=== PATIENT | male | born 1965 | race African-American/Black ===

== ENCOUNTER 2017-08-13 17:55 | Inpatient (IN) | payer MEDICAID ==
[~2017-08-13] VITALS: Ht 193 cm; Wt 118.6 kg
[2017-08-13 18:57] LABS: BASOPHILS 0.6 % (0-2); EOSINOPHILS 6.2 % (0-7); HEMATOCRIT 47.9 % (42.0-54.0); HEMOGLOBIN 17.2 g/dL (13.5-17.5); IMMATURE GRANULOCYTES 0.2 % (0-5); LYMPHOCYTES 29.8 % (15-50); MCH 30.8 pg (26.0-34.0); MCHC 35.9 g/dL (31.0-37.0); MCV 85.8 fL (80.0-100.0); MEAN PLATELET VOLUME 12.6 fL (7.4-10.4); MONOCYTES 5.3 % (2-11); NEUTROPHILS 57.9 % (40-80); PLATELET COUNT 200 10x3/uL (130-400); RBC 5.58 10x6/uL (4.20-6.10); RDW 12.7 % (11.5-14.5); WBC 9.8 10x3/uL (4.8-10.8)
[2017-08-13 19:07] LABS: INR 1.1 (0.85-1.17); PROTIME 13.8 SECONDS (11.6-15.0)
[2017-08-13 19:35] LABS: ALBUMIN 4.6 g/dL (3.4-5.0); ANION GAP 16.9 mmol/L (8-16); BILIRUBIN - TOTAL 0.45 mg/dL (0.2-1.3); CALCIUM 10.9 mg/dL (8.5-10.1); CARBON DIOXIDE 24.5 mmol/L (21.0-32.0); CREATININE - SERUM 1.6 mg/dL (0.6-1.3); POTASSIUM - SERUM 3.4 mmol/L (3.5-5.1); PROTEIN - SERUM 9.1 g/dL (6.4-8.2)
[2017-08-14 01:43] VITALS: BP 157/105; BMI 30.2
[2017-08-14 04:00] VITALS: BP 164/114
[2017-08-14] MEDS ORDERED: LISINOPRIL10 MG PO (05:38)
[2017-08-14] MEDS ORDERED: PEPCID40 MG PO (05:39)
[2017-08-14] MEDS ORDERED: LOPRESSOR25 MG PO (05:39)
[2017-08-14] MEDS ORDERED: LANTUS INSULIN10 ML SC (05:40)
[2017-08-14] MEDS ORDERED: HUMALOG 30100 UNITS/ SC (05:41)
[2017-08-14 08:08] VITALS: BP 142/104
[2017-08-14 11:55] VITALS: Ht 193 cm; Wt 118.6 kg
[2017-08-14 13:08] VITALS: BP 127/100
[2017-08-14 16:01] LABS: BASOPHILS 0.7 % (0-2); EOSINOPHILS 5.6 % (0-7); HEMATOCRIT 42.2 % (42.0-54.0); HEMOGLOBIN 14.7 g/dL (13.5-17.5); IMMATURE GRANULOCYTES 0.2 % (0-5); LYMPHOCYTES 28.1 % (15-50); MCH 30.1 pg (26.0-34.0); MCHC 34.8 g/dL (31.0-37.0); MCV 86.3 fL (80.0-100.0); MEAN PLATELET VOLUME 12.7 fL (7.4-10.4); MONOCYTES 5.9 % (2-11); NEUTROPHILS 59.5 % (40-80); RBC 4.89 10x6/uL (4.20-6.10); RDW 12.7 % (11.5-14.5)
[2017-08-14 16:02] VITALS: BP 150/106
[2017-08-14 16:14] LABS: PLATELET COUNT 124 10x3/uL (130-400); WBC 5.8 10x3/uL (4.8-10.8)
[2017-08-14 16:27] LABS: BILIRUBIN - TOTAL 0.59 mg/dL (0.2-1.3); CREATININE - SERUM 1.3 mg/dL (0.6-1.3)
[2017-08-14 16:30] LABS: ALBUMIN 3.2 g/dL (3.4-5.0); ANION GAP 8.4 mmol/L (8-16); POTASSIUM - SERUM 4.4 mmol/L (3.5-5.1); PROTEIN - SERUM 6.7 g/dL (6.4-8.2)
[2017-08-14 20:00] VITALS: BP 145/93
[2017-08-15 04:00] VITALS: BP 168/97
[2017-08-15 06:31] LABS: BASOPHILS 0.7 % (0-2); EOSINOPHILS 8.1 % (0-7); HEMATOCRIT 41.6 % (42.0-54.0); HEMOGLOBIN 14.6 g/dL (13.5-17.5); IMMATURE GRANULOCYTES 0.2 % (0-5); LYMPHOCYTES 31.3 % (15-50); MCH 30.4 pg (26.0-34.0); MCHC 35.1 g/dL (31.0-37.0); MCV 86.7 fL (80.0-100.0); MEAN PLATELET VOLUME 12.9 fL (7.4-10.4); MONOCYTES 6.7 % (2-11); PLATELET COUNT 135 10x3/uL (130-400); RDW 12.6 % (11.5-14.5)
[2017-08-15 06:40] LABS: ANION GAP 13.7 mmol/L (8-16); BILIRUBIN - TOTAL 0.74 mg/dL (0.2-1.3); CALCIUM 8.9 mg/dL (8.5-10.1); CARBON DIOXIDE 25.2 mmol/L (21.0-32.0); CREATININE - SERUM 1.1 mg/dL (0.6-1.3); POTASSIUM - SERUM 3.9 mmol/L (3.5-5.1); PROTEIN - SERUM 6.4 g/dL (6.4-8.2)
[2017-08-15 06:43] LABS: WBC 4.3 10x3/uL (4.8-10.8)
[2017-08-15 08:14] VITALS: BP 161/101
[2017-08-15 13:19] VITALS: BP 150/109
[2017-08-15 15:43] VITALS: BP 167/105
[2017-08-15 20:00] VITALS: BP 151/79
[2017-08-16] VITALS (7 sets, daily range): BP systolic 143–167; BP diastolic 88–106
[2017-08-16 05:33] LABS: BASOPHILS 0.5 % (0-2); EOSINOPHILS 7.6 % (0-7); HEMATOCRIT 42.4 % (42.0-54.0); HEMOGLOBIN 14.6 g/dL (13.5-17.5); IMMATURE GRANULOCYTES 0.2 % (0-5); LYMPHOCYTES 40.8 % (15-50); MCH 30.2 pg (26.0-34.0); MCHC 34.4 g/dL (31.0-37.0); MCV 87.6 fL (80.0-100.0); MEAN PLATELET VOLUME 12.9 fL (7.4-10.4); MONOCYTES 8.8 % (2-11); NEUTROPHILS 42.1 % (40-80); PLATELET COUNT 142 10x3/uL (130-400); RBC 4.84 10x6/uL (4.20-6.10); RDW 12.6 % (11.5-14.5); WBC 4.1 10x3/uL (4.8-10.8)
[2017-08-16 05:44] LABS: ALBUMIN 3.2 g/dL (3.4-5.0); BILIRUBIN - TOTAL 0.87 mg/dL (0.2-1.3); CALCIUM 9.5 mg/dL (8.5-10.1); CARBON DIOXIDE 28.5 mmol/L (21.0-32.0); CREATININE - SERUM 1.1 mg/dL (0.6-1.3); POTASSIUM - SERUM 3.5 mmol/L (3.5-5.1); PROTEIN - SERUM 6.8 g/dL (6.4-8.2)
[2017-08-17 03:30] VITALS: BP 146/96
[2017-08-17 05:18] LABS: BASOPHILS 0.5 % (0-2); EOSINOPHILS 7.9 % (0-7); HEMATOCRIT 38.9 % (42.0-54.0); HEMOGLOBIN 13.4 g/dL (13.5-17.5); IMMATURE GRANULOCYTES 0.2 % (0-5); LYMPHOCYTES 45.2 % (15-50); MCH 30.1 pg (26.0-34.0); MCHC 34.4 g/dL (31.0-37.0); MCV 87.4 fL (80.0-100.0); MEAN PLATELET VOLUME 12.6 fL (7.4-10.4); MONOCYTES 7.9 % (2-11); NEUTROPHILS 38.3 % (40-80); PLATELET COUNT 142 10x3/uL (130-400); RBC 4.45 10x6/uL (4.20-6.10); RDW 12.5 % (11.5-14.5); WBC 4.1 10x3/uL (4.8-10.8)
[2017-08-17 05:45] LABS: ALBUMIN 2.8 g/dL (3.4-5.0); ANION GAP 9.6 mmol/L (8-16); BILIRUBIN - TOTAL 0.4 mg/dL (0.2-1.3); CALCIUM 8.8 mg/dL (8.5-10.1); CARBON DIOXIDE 29.7 mmol/L (21.0-32.0); CREATININE - SERUM 1.1 mg/dL (0.6-1.3); POTASSIUM - SERUM 4.3 mmol/L (3.5-5.1); PROTEIN - SERUM 6.1 g/dL (6.4-8.2)
[2017-08-17 07:03] VITALS: BP 157/94
[2017-08-17 11:10] VITALS: BP 163/101
[2017-08-17 14:58] VITALS: BP 171/98
[2017-08-17 20:00] VITALS: BP 159/96
[2017-08-18] VITALS: BP 134/75
[2017-08-18 05:00] VITALS: BP 142/77
[2017-08-18 06:10] LABS: BASOPHILS 0.8 % (0-2); EOSINOPHILS 7.5 % (0-7); HEMATOCRIT 39.4 % (42.0-54.0); HEMOGLOBIN 13.7 g/dL (13.5-17.5); IMMATURE GRANULOCYTES 0.3 % (0-5); LYMPHOCYTES 37.5 % (15-50); MCH 30.2 pg (26.0-34.0); MCHC 34.8 g/dL (31.0-37.0); MCV 86.8 fL (80.0-100.0); MEAN PLATELET VOLUME 12.3 fL (7.4-10.4); NEUTROPHILS 43.9 % (40-80); PLATELET COUNT 135 10x3/uL (130-400); RBC 4.54 10x6/uL (4.20-6.10); RDW 12.6 % (11.5-14.5); WBC 3.6 10x3/uL (4.8-10.8)
[2017-08-18 06:32] LABS: ALBUMIN 2.8 g/dL (3.4-5.0); ALKALINE PHOSPHATASE 64 U/L (46-116); ALT (SGPT) 26 U/L (10-68); CALC OSMOLALITY 283 mosm/kg (275-300); CALCIUM 8.4 mg/dL (8.5-10.1); CARBON DIOXIDE 28.7 mmol/L (21.0-32.0); CHLORIDE - SERUM 106 mmol/L (98-107); GLUCOSE 200 mg/dL (74-106); POTASSIUM - SERUM 3.8 mmol/L (3.5-5.1); SODIUM 141 mmol/L (136-145); eGFR NON AFRICAN AMERICAN 83 mL/min (90-120)
[2017-08-18 06:34] LABS: UREA NITROGEN 3 mg/dL (7-18)
[2017-08-18 09:02] VITALS: BP 154/88
[2017-08-18 16:49] VITALS: BP 145/78
[2017-08-18 20:00] VITALS: BP 135/98
[2017-08-19] VITALS: BP 107/69
[2017-08-19 05:54] LABS: BASOPHILS 0.2 % (0-2); EOSINOPHILS 3.1 % (0-7); HEMATOCRIT 39.9 % (42.0-54.0); HEMOGLOBIN 13.6 g/dL (13.5-17.5); IMMATURE GRANULOCYTES 0.2 % (0-5); LYMPHOCYTES 22.8 % (15-50); MCHC 34.1 g/dL (31.0-37.0); MCV 87.9 fL (80.0-100.0); MEAN PLATELET VOLUME 12.5 fL (7.4-10.4); MONOCYTES 8.6 % (2-11); NEUTROPHILS 65.1 % (40-80); PLATELET COUNT 147 10x3/uL (130-400); RBC 4.54 10x6/uL (4.20-6.10); RDW 12.5 % (11.5-14.5)
[2017-08-19 06:00] LABS: WBC 4.8 10x3/uL (4.8-10.8)
[2017-08-19 06:16] LABS: ALBUMIN 2.5 g/dL (3.4-5.0); ANION GAP 7.9 mmol/L (8-16); CALCIUM 8.2 mg/dL (8.5-10.1); CARBON DIOXIDE 30.2 mmol/L (21.0-32.0); MAGNESIUM - SERUM 1.3 mg/dL (1.8-2.4); PHOSPHOROUS 3.4 mg/dL (2.5-4.9); POTASSIUM - SERUM 4.1 mmol/L (3.5-5.1); PROTEIN - SERUM 5.3 g/dL (6.4-8.2)
[2017-08-19 06:28] LABS: CREATININE - SERUM 1.3 mg/dL (0.6-1.3)
[2017-08-19 07:13] VITALS: BP 149/90
[2017-08-19 11:02] VITALS: BP 153/106
[2017-08-19 15:04] VITALS: BP 148/86
[2017-08-19 19:30] VITALS: BP 142/88
[2017-08-19 23:49] VITALS: BP 150/89
[2017-08-20 03:58] VITALS: BP 139/92
[2017-08-20 09:32] VITALS: BP 156/97
[2017-08-20 13:27] VITALS: BP 160/105
[2017-08-20 16:41] VITALS: BP 151/92
[2017-08-20 23:00] VITALS: BP 158/100
[2017-08-21 05:00] VITALS: BP 157/102
[2017-08-21 08:45] VITALS: BP 175/106
[2017-08-21 12:45] VITALS: BP 173/113
[2017-08-21 16:32] VITALS: BP 159/101
[2017-08-22 02:00] VITALS: BP 141/91
[2017-08-22 08:20] VITALS: BP 156/94
[2017-08-22 12:26] VITALS: BP 147/98
[2017-08-22 16:14] VITALS: BP 166/102
[2017-08-22 20:00] VITALS: BP 144/87
[2017-08-23] VITALS: BP 135/87
[2017-08-23 04:00] VITALS: BP 129/49
[2017-08-23 07:59] VITALS: BP 150/99
[2017-08-23 12:23] VITALS: BP 156/94
[2017-08-23 15:52] VITALS: BP 158/90
[2017-08-23] MEDS ORDERED: HYDROCODON-ACE1 EAC7 PO (21:03)
== END 2017-08-23 21:57 | disposition home or self-care (01) | DRG 354 ==
LOC: D.ER 17:55 → D.MS 21:00
PROVIDERS: Emergency Medicine; Nurse Practitioner Family; Surgery
PROC: 0WUF0JZ Supplement Abdominal Wall with Synthetic Substitute, Open Approach (ICD-10-PCS; principal; 2017-08-18 10:00)
DX: K43.0 Incisional hernia with obstruction, without gangrene (principal); N17.9 Acute kidney failure, unspecified; E11.9 Type 2 diabetes mellitus without complications; I10 Essential (primary) hypertension

== ENCOUNTER 2017-09-01 19:20 | Inpatient (IN) | payer MEDICAID ==
[~2017-09-01] VITALS: Ht 193 cm; Wt 116.1 kg
--- NOTE | ~2017-09-01 | DS ---
PATIENT:MALU ZAIDI :63 MEDICAL RECORD: [id number] DISCHARGE SUMMARY ADMISSION DATE: 09/02/17 DISCHARGE DATE: 09/09/17 PRINCIPAL DIAGNOSES: 1. Postoperative subcutaneous seromas times 4. 2. Ileus. PROCEDURE: Incision and drainage of postoperative subcutaneous seromas times 4. HOSPITAL COURSE: The patient was admitted through the Emergency Room. He underwent an operative drainage of some subcutaneous postoperative seromas. The patient had an ileus postoperatively. Bowel function returned. His diet was advanced. He is being dismissed home on [place] [address] for pain. Discharge instructions were given to the patient verbally by me. I will see him in the office in a week for suture removal. TRANSINT:[id number] Voice Confirmation ID: [id number] DOCUMENT ID: [id number] MILADYS FLORES MD at 0938 CC: [id number] DICTATION DATE: 09/09/17 1031 METAL FILER: 09/10/17 0059 DIS IN 09/09/17 [id number] [place] [address]
--- NOTE | ~2017-09-01 | HP ---
PATIENT: MALU ZAIDI MEDICAL RECORD: [id number] ACCOUNT: [id number] LOCATION:D.MS [place] : 63 ADMISSION DATE: 09/02/17 HISTORY AND PHYSICAL EXAMINATION DATE: 09/02/2017 This is a history and physical addendum. CHIEF COMPLAINT: Abdominal pain. HISTORY OF PRESENT ILLNESS: The patient presents to the Emergency Room. He had CT evidence of a small-bowel obstruction. I personally reviewed the CT images. He also has what appears to be 4 subcutaneous fluid collections. The patient had recently undergone an open incisional hernia repair with mesh utilizing the bilateral component separation technique. He appears to have subcutaneous fluid collections beneath both of the flank incisions as well as 2 beneath the midline incision. I am going to plan for operative drainage utilizing an open technique tomorrow. The risks, possible complications, and alternatives to the procedure were explained to the patient. He elects to proceed. This is a history and physical addendum. For the typed portion of the history and physical, please see the chart. This would include the past medical and surgical history, allergies, social history, and current medications as well as family history. REVIEW OF SYSTEMS: Positive for nausea. No fever, no chills. Positive for abdominal pain. PHYSICAL EXAMINATION: GENERAL: The patient does not appear acutely ill. He does appear chronically ill. VITAL SIGNS: Reviewed. EARS: External ears appear normal. EYES: Extraocular movements are intact. NECK: Trachea is midline. CHEST: No intercostal retractions. PULMONARY: Nonlabored, no stridor. ABDOMEN: Areas of tenderness and induration particularly in the midline. The incisions are well healed. PSYCHIATRIC: Anxious affect. NEUROLOGIC: There is evidence of loss of higher cortical function. Answers questions appropriately, however. BACK: No thoracic kyphosis. LYMPHATICS: No lymphangitic streaking of the exposed extremities. IMPRESSION: 1. Small-bowel obstruction versus ileus. 2. Subcutaneous fluid collections. PLAN: N.p.o. Drainage of fluid collections in the operating room tomorrow. TRANSINT:[id number] Voice Confirmation ID: [id number] DOCUMENT ID: [id number] HISTORY AND PHYSICAL [id number] MALU ZAIDI, MILADYS JULIAN at 0938 CC: [id number] DICTATION DATE: 09/03/171911 RESIZER OPERATOR: 09/03/171952 DIS IN 09/09/17 [facility] [address] [place] [address]
--- NOTE | ~2017-09-01 | OP ---
PATIENT NAME: MALU ZAIDI MEDICAL RECORD: [id number] :63 LOCATION:D.MS [id number] ADMISSION DATE:09/02/17 SURGEON: FADI FLORES MD DATE OF OPERATION: 09/03/2017 PREOPERATIVE DIAGNOSIS: Four subcutaneous postoperative fluid collections. POSTOPERATIVE DIAGNOSES: Four subcutaneous postoperative seromas. PROCEDURE: Open drainage of four postoperative subcutaneous seromas. SURGEON: Fadi Flores MD PRISON CLASSIFICATION COUNSELOR: None. BLOOD LOSS: Minimal. ANESTHESIA: General. COMPLICATIONS: None. The risks, possible complications and alternatives to the procedure were explained to the patient. He elects to proceed. OPERATIVE COURSE: The patient was conveyed to the operating room electively on 09/03/2017. General anesthesia was induced by the anesthesia staff. The abdomen was sterilely prepped and draped. All of the sutures and cory were removed. Starting on the right in the flank incision, I dissected down through the scar with a hemostat. I encountered a sterile seroma. I evacuated this with suction. I then closed the incision with a horizontal mattress 2-0 nylon. In the midline, I dissected down through the midline scar with a hemostat. I encountered two fluid collections. These were aspirated with suction cannula. I then closed the incision with a single horizontal mattress 2-0 nylon. On the left side in the left flank incision, I dissected down through skin and subcutaneous tissues within the scar with a hemostat. I encountered a fluid collection, which was a sterile seroma and this was aspirated with the suction cannula. I then closed the incision with a single horizontal mattress 2-0 nylon. Sterile dressings were applied. The patient was then extubated and conveyed to post-anesthesia care unit where he was in stable condition. TRANSINT:[id number] Voice Confirmation ID: [id number] DOCUMENT ID: [id number] FADI FLORES MD at 0938 CC: [id number] DICTATION DATE: 09/03/171915 SENIOR WAREHOUSE CLERK: 09/03/172229 DIS IN 09/09/17 [facility] [address] [place] [address]
[~2017-09-01 19:20] MED LIST: HUMALOG 30100 UNITS/ SC; HYDROCODON-ACE1 EAC7 PO; LANTUS INSULIN10 ML SC; LISINOPRIL10 MG PO; LOPRESSOR25 MG PO; PEPCID40 MG PO
[2017-09-01 19:46] LABS: BASOPHILS 0.4 % (0-2); EOSINOPHILS 9.9 % (0-7); HEMATOCRIT 39.3 % (42.0-54.0); HEMOGLOBIN 13.7 g/dL (13.5-17.5); IMMATURE GRANULOCYTES 0.3 % (0-5); LYMPHOCYTES 24.6 % (15-50); MCH 30.2 pg (26.0-34.0); MCHC 34.9 g/dL (31.0-37.0); MCV 86.6 fL (80.0-100.0); MEAN PLATELET VOLUME 11.2 fL (7.4-10.4); MONOCYTES 5.6 % (2-11); NEUTROPHILS 59.2 % (40-80); RBC 4.54 10x6/uL (4.20-6.10); RDW 12.7 % (11.5-14.5); WBC 7.7 10x3/uL (4.8-10.8)
[2017-09-01 19:47] LABS: PLATELET COUNT 305 10x3/uL (130-400)
[2017-09-01 20:00] LABS: ALBUMIN 3.5 g/dL (3.4-5.0); ANION GAP 17.9 mmol/L (8-16); BILIRUBIN - TOTAL 0.35 mg/dL (0.2-1.3); CALCIUM 9.3 mg/dL (8.5-10.1); CREATININE - SERUM 1.3 mg/dL (0.6-1.3); POTASSIUM - SERUM 3.9 mmol/L (3.5-5.1); PROTEIN - SERUM 7.8 g/dL (6.4-8.2)
[2017-09-01 20:54] LABS: AMYLASE - SERUM 104 U/L (25-115); LIPASE 165 U/L (73-393)
[2017-09-01 22:36] LABS: APPEARANCE CLEAR (CLEAR); BILIRUBIN NEGATIVE (NEGATIVE); COLOR YELLOW (YELLOW); GLUCOSE NEGATIVE (NEGATIVE); KETONE NEGATIVE (NEGATIVE); NITRITE NEGATIVE (NEGATIVE); PROTEIN TRACE mg/dL (NEGATIVE); UROBILINOGEN NORMAL (NORMAL)
[2017-09-01 22:42] LABS: BACTERIA FEW /hpf (NONE SEEN); CALCIUM OXALATE CRYSTALS 25-50 /hpf (NONE SEEN); EPITHELIAL CELLS 0-5 /hpf (0-5); WHITE CELLS - URINE 0-5 /hpf (0-5)
[2017-09-02] VITALS: BP 159/103
[2017-09-02 00:36] VITALS: BP 159/103; BMI 31.2
[2017-09-02 04:00] VITALS: BP 166/107
[2017-09-02 06:26] LABS: BASOPHILS 0.5 % (0-2); EOSINOPHILS 12.7 % (0-7); HEMATOCRIT 38.9 % (42.0-54.0); HEMOGLOBIN 13.2 g/dL (13.5-17.5); IMMATURE GRANULOCYTES 0.4 % (0-5); LYMPHOCYTES 32.1 % (15-50); MCH 29.5 pg (26.0-34.0); MCHC 33.9 g/dL (31.0-37.0); MCV 86.8 fL (80.0-100.0); MEAN PLATELET VOLUME 12.2 fL (7.4-10.4); NEUTROPHILS 48.3 % (40-80); PLATELET COUNT 297 10x3/uL (130-400); RBC 4.48 10x6/uL (4.20-6.10); RDW 12.9 % (11.5-14.5)
[2017-09-02 06:32] LABS: CALC OSMOLALITY 279 mosm/kg (275-300); CALCIUM 8.9 mg/dL (8.5-10.1); CARBON DIOXIDE 20.7 mmol/L (21.0-32.0); CHLORIDE - SERUM 107 mmol/L (98-107); SODIUM 139 mmol/L (136-145); UREA NITROGEN 9 mg/dL (7-18); eGFR NON AFRICAN AMERICAN 83 mL/min (90-120)
[2017-09-02 06:51] LABS: GLUCOSE 150 mg/dL (74-106)
[2017-09-02 07:09] LABS: WBC 5.5 10x3/uL (4.8-10.8)
[2017-09-02 08:21] VITALS: BP 173/110
[2017-09-02 14:58] VITALS: Ht 193 cm; Wt 116.1 kg
[2017-09-02 15:52] VITALS: BP 136/84
[2017-09-02 19:00] VITALS: BP 133/90
[2017-09-03] VITALS (10 sets, daily range): BP systolic 140–180; BP diastolic 64–105
[2017-09-04 04:00] VITALS: BP 166/92
[2017-09-04 10:57] VITALS: BP 153/108
[2017-09-04 17:18] VITALS: BP 132/74
[2017-09-04 20:00] VITALS: BP 168/116
[2017-09-05] VITALS: BP 172/104
[2017-09-05 06:25] LABS: HEMATOCRIT 36.1 % (42.0-54.0); HEMOGLOBIN 12.5 g/dL (13.5-17.5); LYMPHOCYTES 22.2 % (15-50); MCH 29.6 pg (26.0-34.0); MCHC 34.6 g/dL (31.0-37.0); MCV 85.3 fL (80.0-100.0); NEUTROPHILS 72.4 % (40-80); RBC 4.23 10x6/uL (4.20-6.10); RDW 13.2 % (11.5-14.5); WBC 6.1 10x3/uL (4.8-10.8)
[2017-09-05 06:32] LABS: ALBUMIN 3.4 g/dL (3.4-5.0); BILIRUBIN - TOTAL 0.5 mg/dL (0.2-1.3); CALCIUM 8.9 mg/dL (8.5-10.1); CARBON DIOXIDE 19.7 mmol/L (21.0-32.0); CREATININE - SERUM 1.2 mg/dL (0.6-1.3); MAGNESIUM - SERUM 1.6 mg/dL (1.8-2.4); PHOSPHOROUS 3.1 mg/dL (2.5-4.9); POTASSIUM - SERUM 4.7 mmol/L (3.5-5.1); PROTEIN - SERUM 7.1 g/dL (6.4-8.2)
[2017-09-05 06:42] LABS: PLATELET COUNT 229 10x3/uL (130-400)
[2017-09-05 09:38] VITALS: BP 159/109
[2017-09-05 13:45] VITALS: BP 160/108
[2017-09-05 17:18] VITALS: BP 163/106
[2017-09-05 22:28] VITALS: BP 155/90
[2017-09-06 02:16] VITALS: BP 153/101
[2017-09-06 04:00] VITALS: BP 150/99
[2017-09-06 08:57] VITALS: BP 167/105
[2017-09-06 12:56] VITALS: BP 160/100
[2017-09-06 16:45] VITALS: BP 167/101
[2017-09-06 20:00] VITALS: BP 171/101
[2017-09-07] VITALS: BP 177/107
[2017-09-07 08:34] VITALS: BP 176/95
[2017-09-07 12:05] VITALS: BP 158/90
[2017-09-07 16:17] VITALS: BP 145/90
[2017-09-07 22:01] VITALS: BP 166/97
[2017-09-08] VITALS (7 sets, daily range): BP systolic 164–211; BP diastolic 90–118
[2017-09-09 04:29] VITALS: BP 162/90
[2017-09-09 08:44] VITALS: BP 175/104
[2017-09-09 12:34] VITALS: BP 183/109
== END 2017-09-09 18:45 | disposition home or self-care (01) | DRG 908 ==
LOC: D.ER 19:20 → D.MS 09-02 00:25
PROVIDERS: Family Medicine; Surgery
PROC: 0J980ZZ Drainage of Abdomen Subcutaneous Tissue and Fascia, Open Approach (ICD-10-PCS; principal; 2017-09-03 12:00)
DX: L76.34 Postprocedural seroma of skin and subcutaneous tissue following other procedure (principal); K56.7 Ileus, unspecified; Y83.8 Other surgical procedures as the cause of abnormal reaction of the patient, or of later complication, without mention of misadventure at the time of the procedure; R19.03 Right lower quadrant abdominal swelling, mass and lump

== ENCOUNTER 2017-11-05 00:20 | Emergency (ER) | payer OTHER ==
[2017-09-02 14:58] VITALS: BMI 31.1
[2017-11-05 01:25] LABS: BASOPHILS 0.7 % (0-2); EOSINOPHILS 10.1 % (0-7); HEMATOCRIT 40.2 % (42.0-54.0); HEMOGLOBIN 13.7 g/dL (13.5-17.5); MCH 29.1 pg (26.0-34.0); MCHC 34.1 g/dL (31.0-37.0); MCV 85.5 fL (80.0-100.0); MEAN PLATELET VOLUME 11.9 fL (7.4-10.4); MONOCYTES 7.4 % (2-11); NEUTROPHILS 55.8 % (40-80); RDW 13.9 % (11.5-14.5); WBC 4.4 10x3/uL (4.8-10.8)
[2017-11-05 01:27] LABS: PLATELET COUNT 144 10x3/uL (130-400)
[2017-11-05 01:44] LABS: ALBUMIN 3.8 g/dL (3.4-5.0); ANION GAP 12.6 mmol/L (8-16); BILIRUBIN - TOTAL 0.5 mg/dL (0.2-1.3); CALCIUM 8.7 mg/dL (8.5-10.1); CARBON DIOXIDE 25.3 mmol/L (21.0-32.0); CREATININE - SERUM 1.1 mg/dL (0.6-1.3); POTASSIUM - SERUM 3.9 mmol/L (3.5-5.1); PROTEIN - SERUM 7.9 g/dL (6.4-8.2)
[2017-11-05 03:13] LABS: APPEARANCE CLEAR (CLEAR); BILIRUBIN NEGATIVE (NEGATIVE); COLOR YELLOW (YELLOW); GLUCOSE NEGATIVE (NEGATIVE); KETONE NEGATIVE (NEGATIVE); NITRITE NEGATIVE (NEGATIVE); PROTEIN 1+ mg/dL (NEGATIVE); UROBILINOGEN NORMAL (NORMAL)
[2017-11-05 03:14] LABS: BACTERIA FEW /hpf (NONE SEEN); EPITHELIAL CELLS 0-5 /hpf (0-5); RED CELLS - URINE NONE SEEN /hpf (0-5); WHITE CELLS - URINE 0-5 /hpf (0-5)
== END 2017-11-05 04:45 | disposition home or self-care (01) ==
LOC: D.ER 00:20
PROVIDERS: Family Medicine
DX: R51 Headache (principal); G44.82 Headache associated with sexual activity

== ENCOUNTER 2018-01-12 14:06 | Inpatient (IN) | payer OTHER ==
[~2018-01-12] VITALS: Ht 193 cm; Wt 104.3 kg
--- NOTE | ~2018-01-12 | HP ---
PATIENT: MALU ZAIDI MEDICAL RECORD: [id number] ACCOUNT: [id number] LOCATION:[address] : 63 ADMISSION DATE: 01/12/18 HISTORY AND PHYSICAL EXAMINATION HISTORY OF PRESENT ILLNESS: A 52-year-old -[place] male presented to the Emergency Room, feeling slightly confused, dizzy for the past several days. He is an insulin-dependent diabetic, noncompliant with his medicines. States he has been out of insurance and has not been on his insulin in some time. Also, a history of hypertension, has had multiple abdominal surgeries, hernia, bowel obstruction, cholecystectomy. MEDICATIONS: Reported medications are Lantus, sliding-scale insulin, lisinopril, metoprolol. He has not been on any of these medicines. ALLERGIES: REPORTED MORPHINE. REVIEW OF SYSTEMS: GENERAL: No acute change in weight or appetite. HEENT: Denies visual changes. Did complain of headache. Denies any focal weakness. Denies tinnitus, epistaxis or dysphagia. CARDIOVASCULAR: Denies chest pain, denies palpitations. PULMONARY: Denies hemoptysis, denies night sweats. GENITOURINARY: Denies dysuria. MUSCULOSKELETAL: No acute changes. GASTROINTESTINAL: Chronic abdominal discomfort. Denies hematemesis, hematochezia or melena. ENDOCRINE: Uncontrolled diabetes, noncompliant. PHYSICAL EXAMINATION: VITAL SIGNS: Temp 97.2, blood pressure 160/104, heart rate 85, respirations 22, O2 sats 98% on room air. GENERAL: Alert, oriented, no acute distress. HEENT: Normocephalic, atraumatic. Eyes: Pupils are equally round and reactive. Ears: Canals patent, TMs are intact. Nose: Nares patent without drainage. Throat: No erythema, no exudates. NECK: Supple. No lymphadenopathy, no JVD. HEART: Regular rate and rhythm. No S3, S4, no rub. LUNGS: Clear to auscultation bilaterally. Breathing is nonlabored. ABDOMEN: Soft, nontender. Bowel sounds all 4 quadrants. EXTREMITIES: Present times 4, no edema. NEUROLOGICAL: Cranial nerves II-XII grossly intact. No appreciable focal deficits. SKIN: Warm and dry. No rash. LABORATORY DATA: CBC: White count 5.0, hemoglobin 15, hematocrit 43.4, platelets 132. Chemistry shows sodium of 135, potassium elevated at 6.4, chloride 102, bicarbonate 23, BUN 25, creatinine 2.3, glucose 285, AST 35, ALT 55. CK is 206, CK-MB is 2.7, troponin less than 0.017. Albumin 3.9. Urinalysis dark yellow, hazy, negative for blood, negative for nitrites, negative for leukocyte esterase. HISTORY AND PHYSICAL [id number] MALU ZAIDI Acute abdominal series, no acute chest findings. No radiographic evidence of an acute abnormality in the abdomen. Moderate stool burden consistent with constipation. EKG shows sinus rhythm, rate of 83. Peaked T-waves consistent with hyperkalemia. Urine drug screen is negative. ASSESSMENT AND PLAN: 1. Hypertension, noncompliant with medications. 2. Hyperkalemia secondary to acute renal insufficiency. IV fluids. Monitor. 3. Hypertension with the hyperkalemia. We will hold lisinopril. Presently, we will place on clonidine 0.1 mg t.i.d. 4. Diabetes. Sliding-scale insulin, intermediate resistance with acute renal failure. We will also consult nephrology. Accurate I's and O's. 5. Constipation, Kayexalate, which will help us stool burden as well as lower his potassium. TRANSINT:[id number] Voice Confirmation ID: [id number] DOCUMENT ID: [id number] MILADYS DUNN DO at 0655 CC: [id number] DICTATION DATE: 01/12/182010 AIRCRAFT WORKER: 01/13/18 0229 ADM IN [facility] [address] [place] [address]
--- NOTE | ~2018-01-12 | DS ---
PATIENT:MALU ZAIDI :63 MEDICAL RECORD: [id number] DISCHARGE SUMMARY ADMISSION DATE: 01/12/18 DISCHARGE DATE: 01/14/18 DATE OF ADMISSION: 01/12/2018 DATE OF DISCHARGE: 01/14/2018 ADMISSION DIAGNOSES: Confusion, hyperglycemia, hyperkalemia, hypertension, noncompliance with medications, and insulin-dependent diabetes, uncontrolled. DISCHARGE DIAGNOSES: Insulin-dependent diabetes, hyperkalemia, acute renal insufficiency, hypertension, noncompliance. HOSPITAL COURSE: The patient was admitted through the Emergency Room with confusion and abdominal discomfort. He had a potassium elevated at 6.4, glucose of 285. Cardiac enzymes were negative. With his hyperkalemia, he also had peaked T waves on EKG. He was admitted, placed on telemetry. IV fluids, started on Kayexalate, started on insulin. His lisinopril was discontinued with the hyperkalemia. He was started on Cardizem, had excellent response. With his acute renal insufficiency, nephrology was also consulted. The patient continued to improve, is anxious to go home. Again, counseled on compliance with medications. Discharged home in significantly improved condition. PHYSICAL EXAMINATION: VITAL SIGNS ON DISCHARGE: Temperature 97.5, blood pressure 130/84, heart rate 83, respirations 18, O2 sats 98% room air. HEART: Regular rate and rhythm. LUNGS: Clear. ABDOMEN: Soft, bowel sounds positive. EXTREMITIES: Present times 4. LABORATORY DATA: Chemistry on discharge shows a sodium of 138, potassium 4.6, chloride 106, bicarbonate 21.4, BUN 25, creatinine 1.8, glucose 178, calcium 8.9, phosphorus 2.5, magnesium is 1.6. TSH 1.96. The patient counseled on ADA diet. Renal ultrasound from nephrology was normal, no significant abnormalities. The patient bowels are moving appropriately. DISCHARGE MEDICATIONS: Per med rec. DISCHARGE INSTRUCTIONS: He will follow up in the clinic in 1-2 weeks for hospital followup. Also, recommend he follow up and/or establish with a PCP. surgical territory manager to assist with discharge medications. TRANSINT:[id number] Voice Confirmation ID: [id number] DOCUMENT ID: [id number] MILADYS DUNN DO at 0802 CC: [id number] DICTATION DATE: 01/14/18 08 NUTRITION MANAGER: 01/14/181945 DIS IN 01/14/18 [facility] [address] [place] [address]
[2018-01-12 14:44] LABS: BASOPHILS 0.6 % (0-2); EOSINOPHILS 9.4 % (0-7); HEMATOCRIT 43.4 % (42.0-54.0); IMMATURE GRANULOCYTES 0.4 % (0-5); LYMPHOCYTES 36.5 % (15-50); MCH 28.8 pg (26.0-34.0); MCHC 34.6 g/dL (31.0-37.0); MCV 83.3 fL (80.0-100.0); MEAN PLATELET VOLUME 12.5 fL (7.4-10.4); MONOCYTES 5.2 % (2-11); NEUTROPHILS 47.9 % (40-80); PLATELET COUNT 132 10x3/uL (130-400); RBC 5.21 10x6/uL (4.20-6.10); RDW 14.4 % (11.5-14.5)
[2018-01-12 15:03] LABS: APPEARANCE HAZY (CLEAR); BILIRUBIN NEGATIVE (NEGATIVE); COLOR DK YELLOW (YELLOW); GLUCOSE 50 mg/dL (NEGATIVE); KETONE NEGATIVE (NEGATIVE); NITRITE NEGATIVE (NEGATIVE); PROTEIN NEGATIVE (NEGATIVE)
[2018-01-12 15:15] LABS: ALBUMIN 3.9 g/dL (3.4-5.0); ALKALINE PHOSPHATASE 99 U/L (46-116); ALT (SGPT) 55 U/L (10-68); BILIRUBIN - TOTAL 0.42 mg/dL (0.2-1.3); CHLORIDE - SERUM 102 mmol/L (98-107); CKMB 2.7 U/L (0.0-3.6); CREATINE KINASE 206 UL (21-232); CREATININE - SERUM 2.3 mg/dL (0.6-1.3); MAGNESIUM - SERUM 1.4 mg/dL (1.8-2.4); PROTEIN - SERUM 8.1 g/dL (6.4-8.2); SODIUM 135 mmol/L (136-145); UREA NITROGEN 25 mg/dL (7-18); eGFR NON AFRICAN AMERICAN 32 mL/min (90-120)
[2018-01-12 15:26] LABS: CALC OSMOLALITY 283 mosm/kg (275-300); GLUCOSE 285 mg/dL (74-106)
[2018-01-12 15:28] LABS: POTASSIUM - SERUM 6.4 mmol/L (3.5-5.1); TROPONIN-I < 0.017 ng/mL (0.000-0.060)
[2018-01-12 17:59] LABS: UDS - AMPHET NEGATIVE QUAL (NEGATIVE); UDS - BARB NEGATIVE QUAL (NEGATIVE); UDS - BENZO NEGATIVE QUAL (NEGATIVE); UDS - COCAINE NEGATIVE QUAL (NEGATIVE); UDS - PCP NEGATIVE QUAL (NEGATIVE); UDS - THC NEGATIVE QUAL (NEGATIVE)
[2018-01-12 18:13] LABS: UDS - OPIATE NEGATIVE QUAL (NEGATIVE)
[2018-01-12 18:30] VITALS: BP 160/104; BMI 28.0
[2018-01-12 21:34] VITALS: BP 125/60
[2018-01-13 01:32] VITALS: BP 136/93
[2018-01-13 04:24] LABS: BASOPHILS 1.8 % (0-2); EOSINOPHILS 10.2 % (0-7); HEMATOCRIT 40.7 % (42.0-54.0); HEMOGLOBIN 14.1 g/dL (13.5-17.5); IMMATURE GRANULOCYTES 0.2 % (0-5); MCH 28.4 pg (26.0-34.0); MCHC 34.6 g/dL (31.0-37.0); MCV 82.1 fL (80.0-100.0); NEUTROPHILS 32.8 % (40-80); PLATELET COUNT 125 10x3/uL (130-400); RBC 4.96 10x6/uL (4.20-6.10); RDW 14.4 % (11.5-14.5); WBC 4.4 10x3/uL (4.8-10.8)
[2018-01-13 04:38] LABS: ANION GAP 11.8 mmol/L (8-16); CALCIUM 9.2 mg/dL (8.5-10.1); CARBON DIOXIDE 23.2 mmol/L (21.0-32.0); CREATININE - SERUM 1.9 mg/dL (0.6-1.3); MAGNESIUM - SERUM 1.6 mg/dL (1.8-2.4); PHOSPHOROUS 3.6 mg/dL (2.5-4.9)
[2018-01-13 07:09] VITALS: BP 107/77
[2018-01-13 08:26] VITALS: BP 155/49
[2018-01-13 12:34] VITALS: BP 125/56
[2018-01-13 12:50] VITALS: Ht 193 cm; Wt 104.3 kg
[2018-01-13 15:45] VITALS: BP 135/89
[2018-01-13 16:25] LABS: MAGNESIUM - SERUM 1.4 mg/dL (1.8-2.4)
[2018-01-13 16:31] LABS: POTASSIUM - SERUM 6.4 mmol/L (3.5-5.1)
[2018-01-13 16:32] LABS: URIC ACID 5.6 mg/dL (2.6-7.2)
[2018-01-13 21:09] VITALS: BP 153/84
[2018-01-14 00:49] VITALS: BP 140/85
[2018-01-14 05:12] VITALS: BP 130/84
[2018-01-14 05:17] LABS: CALCIUM 8.9 mg/dL (8.5-10.1); CARBON DIOXIDE 21.4 mmol/L (21.0-32.0); CREATININE - SERUM 1.8 mg/dL (0.6-1.3); MAGNESIUM - SERUM 1.6 mg/dL (1.8-2.4); THYROID STIMULATING HORMONE 1.96 uIU/mL (0.36-3.74)
[2018-01-14 05:19] LABS: ANION GAP 15.2 mmol/L (8-16); PHOSPHOROUS 2.5 mg/dL (2.5-4.9); POTASSIUM - SERUM 4.6 mmol/L (3.5-5.1)
[2018-01-14] MEDS ORDERED: FLOMAX0.4 MG PO (07:56)
[2018-01-14] MEDS ORDERED: CARDIZEM60 MG PO (07:57)
[2018-01-14] MEDS ORDERED: LANTUS INSULIN10 ML SC (07:58)
[2018-01-14 08:14] VITALS: BP 92/56
[2018-01-15 14:24] LABS: SPE - A/G RATIO 1.1 (0.7-1.7); SPE - ALBUMIN 3.9 g/dL (2.9-4.4); SPE - ALPHA-1 GLOBULIN 0.2 g/dL (0.0-0.4); SPE - ALPHA-2 GLOBULIN 0.8 g/dL (0.4-1.0); SPE - BETA GLOBULIN 0.9 g/dL (0.7-1.3); SPE - GAMMA GLOBULIN 1.7 g/dL (0.4-1.8); SPE - M-SPIKE Not Observed g/dL (Not Observed); SPE - TOTAL PROTEIN 7.4 g/dL (6.0-8.5)
[2018-01-17 16:15] LABS: RENIN ACTIVITY - PLASMA 13.256 ng/mL/hr (0.167-5.380)
[2018-01-19 13:08] LABS: ALDOSTERONE 1.3 ng/dL (0.0-30.0)
== END 2018-01-14 10:47 | disposition home or self-care (01) | DRG 684 ==
LOC: D.ER 14:06 → D.EDHOLD 17:21 → D.M2 17:21
PROVIDERS: Family Medicine; Internal Medicine Nephrology
DX: N17.9 Acute kidney failure, unspecified (principal); E87.5 Hyperkalemia; E11.65 Type 2 diabetes mellitus with hyperglycemia; Z79.4 Long term (current) use of insulin; R41.0 Disorientation, unspecified; I10 Essential (primary) hypertension; K59.00 Constipation, unspecified; R94.31 Abnormal electrocardiogram [ECG] [EKG]; E11.40 Type 2 diabetes mellitus with diabetic neuropathy, unspecified; Z72.0 Tobacco use; Z91.14 Patient's other noncompliance with medication regimen

== ENCOUNTER 2018-03-22 07:10 | Emergency (ER) | payer OTHER ==
[~2018-03-22] VITALS: Ht 193 cm; Wt 106.8 kg
[~2018-03-22 07:10] MED LIST changes: +CARDIZEM60 MG PO; +FLOMAX0.4 MG PO
[2018-03-22 07:15] VITALS: Ht 193 cm; Wt 106.8 kg
[2018-03-22] MEDS ORDERED: ZITHROMAX500 MG PO (07:33)
[2018-03-22] MEDS ORDERED: PROAIR HFA8.5 GM INH (07:33)
[2018-03-22] MEDS ORDERED: MUCINEX600 MG PO (07:39)
[2018-03-22 08:23] VITALS: BP 146/89
== END 2018-03-22 08:23 | disposition home or self-care (01) ==
LOC: D.ER 07:10
DX: J20.9 Acute bronchitis, unspecified (principal); E11.65 Type 2 diabetes mellitus with hyperglycemia; Z79.4 Long term (current) use of insulin; R09.89 Other specified symptoms and signs involving the circulatory and respiratory systems; I10 Essential (primary) hypertension; F17.200 Nicotine dependence, unspecified, uncomplicated

== ENCOUNTER 2018-04-15 19:23 | Observation (INO) | payer MEDICAID ==
[~2018-04-15] VITALS: Ht 193 cm; Wt 111.8 kg
[~2018-04-15 19:23] MED LIST changes: +MUCINEX600 MG PO; +PROAIR HFA8.5 GM INH; +ZITHROMAX500 MG PO
[2018-04-15 20:00] VITALS: BP 128/87
[2018-04-15 20:19] LABS: APPEARANCE CLEAR (CLEAR); BILIRUBIN NEGATIVE (NEGATIVE); COLOR YELLOW (YELLOW); GLUCOSE 50 mg/dL (NEGATIVE); KETONE NEGATIVE (NEGATIVE); NITRITE NEGATIVE (NEGATIVE); PROTEIN NEGATIVE (NEGATIVE)
[2018-04-15 20:37] LABS: BASOPHILS 0.2 % (0-2); EOSINOPHILS 10.2 % (0-7); HEMATOCRIT 43.7 % (42.0-54.0); HEMOGLOBIN 15.3 g/dL (13.5-17.5); IMMATURE GRANULOCYTES 0.2 % (0-5); LYMPHOCYTES 14.9 % (15-50); MCH 31.3 pg (26.0-34.0); MCV 89.4 fL (80.0-100.0); MEAN PLATELET VOLUME 12.4 fL (7.4-10.4); NEUTROPHILS 69.5 % (40-80); PLATELET COUNT 130 10x3/uL (130-400); RBC 4.89 10x6/uL (4.20-6.10); RDW 13.4 % (11.5-14.5); WBC 4.4 10x3/uL (4.8-10.8)
[2018-04-15 21:03] LABS: ALBUMIN 3.3 g/dL (3.4-5.0); ALKALINE PHOSPHATASE 57 U/L (46-116); ALT (SGPT) 39 U/L (10-68); CALC OSMOLALITY 284 mosm/kg (275-300); CALCIUM 8.7 mg/dL (8.5-10.1); CARBON DIOXIDE 26.2 mmol/L (21.0-32.0); CHLORIDE - SERUM 104 mmol/L (98-107); CREATININE - SERUM 1.6 mg/dL (0.6-1.3); GLUCOSE 181 mg/dL (74-106); POTASSIUM - SERUM 4.6 mmol/L (3.5-5.1); PROTEIN - SERUM 7.4 g/dL (6.4-8.2); SODIUM 138 mmol/L (136-145); UREA NITROGEN 24 mg/dL (7-18); eGFR NON AFRICAN AMERICAN 48 mL/min (90-120)
[2018-04-15 21:06] LABS: AMYLASE - SERUM 72 U/L (25-115); LIPASE 89 U/L (73-393); TROPONIN-I < 0.017 ng/mL (0.000-0.060)
[2018-04-15 23:00] VITALS: BP 117/69
[2018-04-16 01:00] VITALS: BP 129/81
[2018-04-16 03:18] VITALS: BP 122/75
[2018-04-16 08:19] VITALS: Ht 193 cm; Wt 111.8 kg
[2018-04-16 09:34] VITALS: BP 148/92
== END 2018-04-16 10:58 | disposition home or self-care (01) ==
LOC: D.ER 19:23 → D.M2 04-16 00:33 → OBSVTIME 04-16 00:33 → D.M2 04-16 10:58
PROVIDERS: Family Medicine
DX: J06.9 Acute upper respiratory infection, unspecified (principal); E11.65 Type 2 diabetes mellitus with hyperglycemia; K21.0 Gastro-esophageal reflux disease with esophagitis; I10 Essential (primary) hypertension; R10.30 Lower abdominal pain, unspecified

== ENCOUNTER 2018-04-25 07:12 | Emergency (ER) | payer BC, MEDICAID ==
[~2018-04-25] VITALS: Ht 193 cm; Wt 108.2 kg
[2018-04-25 07:14] VITALS: Ht 193 cm; Wt 108.2 kg
[2018-04-25 08:01] LABS: BASOPHILS 0.8 % (0-2); EOSINOPHILS 8.7 % (0-7); HEMOGLOBIN 14.6 g/dL (13.5-17.5); IMMATURE GRANULOCYTES 0.4 % (0-5); MCH 31.1 pg (26.0-34.0); MCHC 34.8 g/dL (31.0-37.0); MCV 89.6 fL (80.0-100.0); MEAN PLATELET VOLUME 12.3 fL (7.4-10.4); MONOCYTES 9.6 % (2-11); NEUTROPHILS 54.5 % (40-80); PLATELET COUNT 147 10x3/uL (130-400); RBC 4.69 10x6/uL (4.20-6.10); WBC 4.8 10x3/uL (4.8-10.8)
[2018-04-25 08:07] LABS: UDS - AMPHET NEGATIVE QUAL (NEGATIVE); UDS - BARB NEGATIVE QUAL (NEGATIVE); UDS - BENZO NEGATIVE QUAL (NEGATIVE); UDS - COCAINE NEGATIVE QUAL (NEGATIVE); UDS - OPIATE POSITIVE QUAL (NEGATIVE); UDS - PCP NEGATIVE QUAL (NEGATIVE); UDS - THC NEGATIVE QUAL (NEGATIVE)
[2018-04-25 08:17] LABS: ALBUMIN 3.6 g/dL (3.4-5.0); ANION GAP 10.2 mmol/L (8-16); BILIRUBIN - TOTAL 0.44 mg/dL (0.2-1.3); CALCIUM 9.3 mg/dL (8.5-10.1); CARBON DIOXIDE 28.3 mmol/L (21.0-32.0); CREATININE - SERUM 1.6 mg/dL (0.6-1.3); POTASSIUM - SERUM 4.5 mmol/L (3.5-5.1); PROTEIN - SERUM 8.1 g/dL (6.4-8.2)
[2018-04-25 08:47] LABS: APPEARANCE CLEAR (CLEAR); COLOR YELLOW (YELLOW); NITRITE NEGATIVE (NEGATIVE); PROTEIN TRACE mg/dL (NEGATIVE); SPECIFIC GRAVITY 1.015 (1.005-1.020)
[2018-04-25 08:48] LABS: BILIRUBIN NEGATIVE (NEGATIVE); GLUCOSE 1000 mg/dL (NEGATIVE); KETONE NEGATIVE (NEGATIVE)
[2018-04-25 08:49] LABS: BACTERIA FEW /hpf (NONE SEEN); EPITHELIAL CELLS OCC /hpf (0-5); MUCUS <1+ /lpf (NONE SEEN); RED CELLS - URINE OCC /hpf (0-5); SPERMATOZOA RARE /hpf (NONE SEEN); WHITE CELLS - URINE OCC /hpf (0-5)
[2018-04-25] MEDS ORDERED: BENTYL10 MG PO (09:19)
[2018-04-25] MEDS ORDERED: FLOMAX0.4 MG PO (09:36)
[2018-04-25 09:53] VITALS: BP 156/90
== END 2018-04-25 09:55 | disposition home or self-care (01) ==
LOC: D.ER 07:12
PROVIDERS: Family Medicine
DX: R10.9 Unspecified abdominal pain (principal); N28.9 Disorder of kidney and ureter, unspecified; N20.1 Calculus of ureter; E11.9 Type 2 diabetes mellitus without complications; I10 Essential (primary) hypertension; F17.200 Nicotine dependence, unspecified, uncomplicated

== ENCOUNTER 2018-05-24 08:26 | Emergency (ER) | payer BC, MEDICAID ==
[~2018-05-24] VITALS: Ht 193 cm; Wt 102.7 kg
[~2018-05-24 08:26] MED LIST changes: +BENTYL10 MG PO
[2018-05-24 08:33] VITALS: Ht 193 cm; Wt 102.7 kg
[2018-05-24] MEDS ORDERED: NORCO 7.5/325 T1 TA1 PO (08:57)
[2018-05-24 09:49] VITALS: BP 162/90
== END 2018-05-24 09:54 | disposition home or self-care (01) ==
LOC: D.ER 08:26
DX: M54.16 Radiculopathy, lumbar region (principal); E11.9 Type 2 diabetes mellitus without complications; I10 Essential (primary) hypertension; F17.200 Nicotine dependence, unspecified, uncomplicated

== ENCOUNTER 2018-06-01 03:29 | Emergency (ER) | payer BC, MEDICAID ==
[~2018-06-01] VITALS: Ht 193 cm; Wt 111.8 kg
[~2018-06-01 03:29] MED LIST changes: +NORCO 7.5/325 T1 TA1 PO
[2018-06-01 03:30] VITALS: Ht 193 cm; Wt 111.8 kg
[2018-06-01 04:22] VITALS: BP 137/77
== END 2018-06-01 04:21 | disposition home or self-care (01) ==
LOC: D.ER 03:29
DX: M54.5 Low back pain (principal); E11.9 Type 2 diabetes mellitus without complications; I10 Essential (primary) hypertension

== ENCOUNTER 2018-06-26 12:03 | Emergency (ER) | payer BC, MEDICAID ==
[2018-06-26 12:12] VITALS: Ht 193 cm
[2018-06-26 12:50] LABS: BASOPHILS 0.5 % (0-2); EOSINOPHILS 4.4 % (0-7); HEMATOCRIT 47.2 % (42.0-54.0); HEMOGLOBIN 17.4 g/dL (13.5-17.5); IMMATURE GRANULOCYTES 0.4 % (0-5); LYMPHOCYTES 21.1 % (15-50); MCH 31.5 pg (26.0-34.0); MCHC 36.9 g/dL (31.0-37.0); MCV 85.4 fL (80.0-100.0); MEAN PLATELET VOLUME 13.2 fL (7.4-10.4); MONOCYTES 5.2 % (2-11); NEUTROPHILS 68.4 % (40-80); PLATELET COUNT 174 10x3/uL (130-400); RBC 5.53 10x6/uL (4.20-6.10); RDW 12.9 % (11.5-14.5); WBC 8.1 10x3/uL (4.8-10.8)
[2018-06-26 13:05] LABS: ALBUMIN 3.7 g/dL (3.4-5.0); ANION GAP 13.7 mmol/L (8-16); BILIRUBIN - TOTAL 1.2 mg/dL (0.2-1.3); CALCIUM 9.9 mg/dL (8.5-10.1); CARBON DIOXIDE 27.6 mmol/L (21.0-32.0); CREATININE - SERUM 1.9 mg/dL (0.6-1.3); MAGNESIUM - SERUM 1.9 mg/dL (1.8-2.4); POTASSIUM - SERUM 4.3 mmol/L (3.5-5.1); PROTEIN - SERUM 8.3 g/dL (6.4-8.2)
[2018-06-26 13:26] LABS: UDS - AMPHET NEGATIVE QUAL (NEGATIVE); UDS - BARB NEGATIVE QUAL (NEGATIVE); UDS - BENZO NEGATIVE QUAL (NEGATIVE); UDS - COCAINE POSITIVE QUAL (NEGATIVE); UDS - OPIATE NEGATIVE QUAL (NEGATIVE); UDS - PCP NEGATIVE QUAL (NEGATIVE); UDS - THC NEGATIVE QUAL (NEGATIVE)
[2018-06-26 13:36] LABS: APPEARANCE CLEAR (CLEAR); BILIRUBIN NEGATIVE (NEGATIVE); COLOR DK YELLOW (YELLOW); GLUCOSE 1000 mg/dL (NEGATIVE); KETONE MODERATE mg/dL (NEGATIVE); NITRITE NEGATIVE (NEGATIVE); PROTEIN 2+ mg/dL (NEGATIVE); SPECIFIC GRAVITY 1.015 (1.005-1.020); WHITE CELLS - URINE 0-5 /hpf (0-5)
[2018-06-26 13:38] LABS: BACTERIA FEW /hpf (NONE SEEN); EPITHELIAL CELLS 0-5 /hpf (0-5); GRANULAR CAST OCC /lpf (NONE SEEN); MUCUS >1+ /lpf (NONE SEEN); RED CELLS - URINE 0-5 /hpf (0-5)
[2018-06-26 19:39] VITALS: BP 132/89
== END 2018-06-26 20:37 ==
LOC: D.ER 12:03
PROVIDERS: Family Medicine
DX: F32.9 Major depressive disorder, single episode, unspecified (principal); F14.10 Cocaine abuse, uncomplicated; E11.65 Type 2 diabetes mellitus with hyperglycemia; N28.9 Disorder of kidney and ureter, unspecified; F41.3 Other mixed anxiety disorders; R45.851 Suicidal ideations; I10 Essential (primary) hypertension

== ENCOUNTER 2018-07-03 10:20 | Observation (INO) | payer BC, MEDICAID ==
[~2018-07-03] VITALS: Ht 193 cm; Wt 102.3 kg
--- NOTE | ~2018-07-03 | MORECARE ---
CASE MANAGEMENT DISCHARGE SUMMARY PATIENT: MALU ZAIDI UNIT: [id number] ADM DATE: 07/03/18 AGE: 52 : 63 SEX: M ROOM/BED: D.2123 AUTHOR: JANENEDOC PHYSICIAN: REFERRING PHYSICIAN: AYSHA GRIER MD DATE OF SERVICE: 07/05/18 Discharge Plan Patient Name: MALU ZAIDI Facility: [facility]:[place] : 1965 Planned Disposition: Other Type of Facility Anticipated Discharge Date: Discharge Date: Expected LOS: Initial Reviewer: [email or web address] Initial Review Date: 07/03/2018 Generated: 07/05/18 5:00 pm Comments DCP- Discharge Planning Updated by [email or web address]: Aditi Torres on 07/05/18 2:[address] LATE [id number] KOBI MET WITH THE PATIENT AT THE BEDSIDE. HE IS UNDOMICILED. HIS GIRLFRIEND , JOSE PEREZ, ASK HIM TO LEAVE HER HOME APPROXIMATELY 3 WEEKS AGO. THEY HAD AN ARGUMENT ABOUT HIS DISCIPLING HER 6 CHILDREN. HE REPORTEDLY DOES NOT HAVE A PHONE. HE RELOCATED FROM [place] TO [place] AFTER CONVERSING ON LINE WITH MS PEREZ ALMOST ONE YEAR AGO. HE HAS FAMILY IN [place] AND [place]. HAS A DAUGHTER, TRIXIE ZAIDI, IN [place], [place]. STATES HE LOST HIS PHONE 3 WEEKS AGO AND CANNOT RECALL THE PHONE NUMBERS. VIVIENNE FRYE A COUSIN, IS IN [place]. HE WANTS TO GO TO AN INPATIENT DRUG REHAB. HE KNOWS HE CANNOT GO TO THE [facility] [place]. NO FAMILY NO FRIENDS IN [place]OWN. STATES HE HAS BEEN ON THE STREETS. EXPLAINED WE WILL HAVE TO LOOK IN [place]. DID GIVE HIM INFORMATION ABOUT [facility]. NO ONE TO ASSESS AND ADMIT AVAILABLE ON THE WEEKEND. HE IS WILLING TO GO TO [place] FOR A DRUG REHAB PROGRAM. KOBI ALSO PROVIDED INFORMATION ABOUT CRACK COCAINE EFFECTS ON THE CARDIOVASCULAR SYSTEM AND THE BODY IN GENERAL. DISCUSSED HANDOUT. PATIENT STATES HE DOES NOT HAVE HIS GLASSESS. PATIENT STATES HE HAS BEEN SOBER FOR 13 YEARS. KOIB WILL SPEAK WITH KOBI MAIN, TO SEARCH [place] FOR A PROGRAM AND HOUSING. SHE WILL FOLLOW UP WITH THE PATIENT. Last DP export: 07/05/18 2:23 Patient Name: MALU ZAIDI Page [id number] at 1600 All edits/amendments must be made on the electronic document DICTATION DATE: 07/05/181599 INSURANCE PROFESSIONAL: TIMUR 07/05/181599 RPT#: [id number] DC DATE: STATUS: ADM IN [facility] [address] [place] [address] END OF REPORT
--- NOTE | ~2018-07-03 | HEMODYNAMI ---
PATIENT:MALU ZAIDI MEDICAL RECORD: [id number] : 63 LOCATION:[address] ADMISSION DATE: 07/03/18 Generatedon:07/04/201813:39 Patient name: MALU ZAIDI Patient #: [id number] SSN: : 1965 Date of study: 07/04/2018 Page: Of Hemodynamic Procedure Report Patient Data Patient Demographics Procedure consent was obtained First Name: MALU Gender: Male Last Name: DEJUAN : 1965 Patient #: [id number] Age: 52 year(s) Race: Black Additional ID: [id number] Contact details Address: [address] [place] [address] State: [place] City: [facility] Zip code: [address] Past Medical History Allergies Allergen Reaction Date Comments Reported Other allergy 07/04/2018 MORPHINE Admission Admission Data Admission Date: 07/03/2018 Admission Time: 12:22 Room #: D.2123 Lab Results Lab Result Date: 07/04/2018 Lab Result Time: 0:00 Biochemistry Name Units Result Min Max BUN mg/dl 25 --(----)-* 7 18 Creatinine mg/dl 2 --(----)-* 0.6 1.3 CBC Name Units Result Min Max Hemoglobin g/dl 16.1 --(--*-)-- 13.5 17.5 Procedure Procedure Types Cath Procedure Diagnostic Procedure C [facility] w/Coronaries Procedure Description Procedure Date Procedure Date: 07/04/2018 Procedure Start Time: 13:32 Procedure End Time: 13:37 Procedure Staff Name Function Spenser Moreno MD Performing Physician Kylah Riggins RT Monitor Romero Vergara RT Scrub Kevin Hardwick RN Qa Reviewer Tania Mak RN Nurse Procedure Data Cath Procedure Fluoroscopy Diagnostic fluoroscopy Total fluoroscopy Time: 1.6 time: 1.6 min min Diagnostic fluoroscopy Total fluoroscopy dose: 390 dose: 390 mGy mGy Contrast Material Contrast Material Type Amount (ml) Isovue 300 47 Entry Location Entry Primary Successful Side Size Upsize Upsize Entry Closure Gonzales ccessful Closure Location (Fr) 1 (Fr) 2 (Fr) Remarks Device Remarks Radial Right 6 Fr Mechanical artery Short Compression Estimated blood loss: 5 ml Diagnostic catheters Device Type Used For End Catheter Placement DIAGNOSTIC Allyn 110cm 5 Procedure Fr catheter ([id number]) Procedure Complications No complications Procedure Medications Medication Administration Route Dosage 0.9% NaCl I.V. 100 ml/hr Oxygen etCO2 Nasal cannula 2 l/min Lidocaine 2% added to field 20 Heparin Flush Bag added to field 2 bags (1000units/500ml NS) Radial Cocktail added to field 1 syringe (Verapomil 2mg/Nitro 400mcg/Heparin 1500units) Versed I.V. 2 mg Fentanyl I.V. 100 mcg Versed I.V. 4 mg Fentanyl I.V. 50 mcg Hemodynamics Rest HGB: 16.1 (g/dl) Heart Rate: 77 (bpm) Snapshots Pre Cath Intra NCS Post Cath Vital Signs Time Heart Resp SPO2 etCO2 NIBP (mmHg) Rhythm Pain Sedation Rate (ipm) (%) (mmHg) Status Level (bpm) 13:19:57 75 14 100 31.8 155/101(119) NSR 0 (11) 10(A) , No pain 13:24:29 75 13 100 34 147/103(112) NSR 0 (11) 10(A) , No pain 13:28:51 83 14 96 30.2 143/91(101) NSR 0 (11) 10(A) , No pain 13:33:15 90 30 97 31.7 121/91(106) NSR 0 (11) 10(A) , No pain 13:37:35 85 15 97 32.5 106/76(90) NSR 0 (11) 10(A) , No pain Medications Time Medication Route Dose Verified Delivered Reason Notes Ef fectiveness by by 13:18:46 0.9% NaCl I.V. 100 Spenser Tania used for ml/hr Tiffanie Mak after school teacher 13:18:54 Oxygen etCO2 2 l/min Spenser Tania used for Nasal Tiffanie Mak procedure cannula RN 13:18:59 Lidocaine 2% added 20ml Spenser Dueñas used for to vial Tiffanie Moreno MD procedure field 13:19:04 Heparin Flush added 2 bags Spenser Dueñas used for Bag to Tiffanie Moreno MD procedure (1000units/500ml field NS) 13:24:48 Radial Cocktail added 1 Spenser Dueñas used for (Verapomil to syringe Tiffanie Moreno MD procedure 2mg/Nitro field 400mcg/Heparin 1500units) 13:29:06 Versed I.V. 2 mg Spenser Zapatayla for Tiffanie Mak sedation RN 13:29:19 Fentanyl I.V. 100 mcg Spenser Zapatayla for Tiffanie Mak sedation RN 13:34:46 Versed I.V. 4 mg Spenser Tania for Tiffanie Mak sedation RN 13:34:50 Fentanyl I.V. 50 mcg Spenser Zapatayla for Tiffanie Mak sedation sexual assault counsellor Log Time Note 13:08:37 Signed procedure consent form obtained from patient. 13:08:38 Time tracking: Regular hours (M-F 7:00 - 5:00) 13:08:44 Plan of Care:Hemodynamics will remain stable., Cardiac rhythm will remain stable., Comfort level will be maintained., Respiratory function will remain adequate., Patient/ family verbilizes understanding of procedure., Procedure tolerated without complication., Recovers from procedure without complications.. 13:08:46 Kevin Hardwick RN sent for patient. Start room use. 13:08:53 H&P Date Dictated: 07/03/2018 Within 30 days and on chart.. 13:13:22 Patient received from Med II to CCL 1 Alert and oriented. Tansferred to table in Supine position. 13:13:23 Warm blankets applied, and clive hugger turned on for patient comfort. 13:13:24 Correct patient and procedure confirmed by team. 13:13:24 ECG and BP/O2 sat monitors applied to patient. 13:18:29 Vital chart was started 13:18:46 0.9% NaCl 100 ml/hr I.V. was administered by Tania Mak RN; used for procedure; 13:18:54 Oxygen 2 l/min etCO2 Nasal cannula was administered by Tania Mak RN; used for procedure; 13:18:59 Lidocaine 2% 20ml vial added to field was administered by Spenser Moreno MD; used for procedure; 13:19:04 Heparin Flush Bag (1000units/500ml NS) 2 bags added to field was administered by Spenser Moreno MD; used for procedure; 13:24:48 Radial Cocktail (Verapomil 2mg/Nitro 400mcg/Heparin 1500units) 1 syringe added to field was administered by Spenser Moreno MD; used for procedure; 13:25:18 Baseline sample Acquired. 13:25:24 Rhythm: sinus rhythm 13:25:24 Full Disclosure recording started 13:25:25 Pre-procedure instructions explained to patient. 13:25:25 Pre-op teaching completed and patient verbalized understanding. 13:25:29 Family unavailable. 13:25:31 Patient NPO since Midnight. 13:25:43 Patient allergic to Other allergyMORPHINE 13:25:49 Is the patient allergic to Iodine/contrast media? No. 13:25:57 Patient diabetic? Yes. 13:25:59 If diabetic: On Metformin? No 13:26:06 Previous problem with sedation/anesthesia? No ? 13:26:07 Snore? No 13:26:08 Sleep apnea? No 13:26:10 Deviated septum? No 13:26:11 Opens mouth fully? Yes 13:26:12 Sticks out tongue? Yes 13:26:14 Airway obstruction? No ? 13:26:16 Dentures? No ? 13:26:18 Modified Bruce's test Ulnar < 7 seconds 13:26:20 Patient pain scale 0/10 ?. 13:26:26 IV patent on arrival in left forearm with 0.9% NaCl at [facility]. 13:26:54 Lab Result : BUN 25 mg/dl 13:26:54 Lab Result : Creatinine 2 mg/dl 13:26:54 Lab Result : Hemoglobin 16.1 g/dl 13:28:07 LOADED ON 600MG PLAVIX 11.8,18 @1315 13:28:12 Lab results completed and on chart. 13:28:18 Right Radial & Right Groin area was prepped with chlora-prep and draped in sterile fashion 13:28:19 Alarms reviewed by R. N. 13:28:19 Sharps counted by scrub and verified by R.N. 13:28:22 Use device set Radial Dx or PCI 13:28:23 ACIST Syringe (21682) opened to sterile field. 13:28:24 Bag Decanter (2002S) opened to sterile field. 13:28:24 ACIST Manifold (46409) opened to sterile field. 13:28:25 ACIST Hand Control (93623) opened to sterile field. 13:28:27 Tegaderm 4 x 4 (1626W) opened to sterile field. 13:28:28 Medline Cath Pack ([id number]) opened to sterile field. 13:28:29 DIAGNOSTIC WIRE .035 260cm J wire (911734) opened to sterile field. 13:28:29 MBrace Wrist Support ([id number]) opened to sterile field. 13:28:30 SHEATH 6Fr Prelude Radial ([id number]) opened to sterile field. 13::57 --------ALL STOP TIME OUT------ 13::58 Final Timeout: patient, procedure, and site verified with staff and physician. All members of the team are in agreement. 13:28:59 Right Radial & Right Groin site verified by team. 13:29:01 Physical assessment completed. ASA score P 2 - A patient with mild systemic disease as per Spenser Moreno MD. 13:29:05 Sedation plan: IV Moderate Sedation Medication:Versed, Fentanyl 13:29:06 Versed 2 mg I.V. was administered by Tania Mak RN; for sedation; 13:29:19 Fentanyl 100 mcg I.V. was administered by Tania Mak RN; for sedation; 13:32:04 Procedure started. 13:32:11 Local anesthetic to right radial artery with Lidocaine 2% by Spenser Moreno MD.INITIAL ACCESS ONLY 13:32:15 Zero performed for pressure channel P1 13:32:46 A 6 Fr Short sheath was inserted into the Right Radial artery 13:32:53 A DIAGNOSTIC Allyn 110cm 5 Fr catheter (579640) was advanced over the wire and used for Procedure. 13:33:15 LV gram done using CHAVEZ 13:33:19 Injector settings: Ml/sec: 7, Volume: 15, 13:33:37 EF : 60 % 13:34:46 Versed 4 mg I.V. was administered by Tania Mak RN; for sedation; 13:34:46 LCA angiography performed. 13:34:50 Fentanyl 50 mcg I.V. was administered by Tania Mak RN; for sedation; 13:35:11 RCA angiography performed. 13:35:13 Catheter removed. 13:35:39 Procedure ended.(Physican Out) 13:35:47 TR BAND Standard ([id number]) opened to sterile field. 13:36:33 Sheath removed intact; hemostasis achieved with Mechanical Compression to the Right Radial artery. 13:36:38 Fluoroscopy time 01.60 minutes. 13:36:41 Fluoroscopy dose: 390 mGy 13:36:41 Flurop Dose total: 390 13:36:48 Contrast amount:Isovue 300 47ml. 13:36:49 Sharps counted by scrub and verified by R.N. 13:36:55 TR band inflated with 10cc of air. 13:36:58 Post-procedure physical assessment completed. ASA score P 2 - A patient with mild systemic disease as per Spenser Moreno MD. 13:37:02 Post procedure rhythm: sinus rhythm 13:37:03 Estimated blood loss: 5 ml 13:37:05 Post procedure instruction explained to patient.Patient verbalizes understanding. 13:37:05 Patient needs reinforcement of post procedure teaching. 13:37:40 Procedure and supply charges have been captured, reviewed, submitted and are correct. 13:37:42 Procedure Complication : No complications 13:37:44 Vital chart was stopped 13:37:44 See physician's report for complete and final results. 13:37:46 Report given to PCU. 13:37:57 Patient transfered to [facility] with Bed. 13:37:58 Procedure ended. 13:37:58 Full Disclosure recording stopped 13:38:02 End room use (Document Last) Device Usage Item Name Manufacture Quantity Catalog Number Hospital Part Current M inimal Lot# / Charge Number Stock Stock Serial# Code ACIST Syringe Acist 1 37409 615361 058513 078602 2 0 (16893) [employer] Bag Decanter Microtek 1 2001S 825802 93833 664738 5 (2001S) Medical Inc. ACIST Manifold Acist 1 90042 438072 742555 617728 5 (91361) [employer] Systems Inc ACIST Hand Acist 1 93514 455191 258040 849478 5 Control (83243) [employer] Inc Tegaderm 4 x 4 3M 1 1626W 507102 947670 325742 5 (1626W) Medline Cath Medline 1 [id number] 252217 75276 929057 5 Pack ([id number]) DIAGNOSTIC WIRE St Alan 1 747820 298850 193559 097183 3 0 .035 260cm J wire (767423) MBrace Wrist Advanced 1 140-0250-00 020435 71888 356818 5 Support Vascular ([id number]) Dynamics SHEATH 6Fr Merit 1 [id number] 262958 643056 520692 5 Prelude Radial Medical ([id number]) DIAGNOSTIC Terumo 1 88-1729 735675 371467 830109 5 Allyn 110cm 5 Fr catheter (430935) TR BAND Terumo 1 ZOG40-NNM 310433 075927 274460 4 0 Standard ([id number]) Signature Audit [place] Stage Time Signature Unsigned Intra-Procedure 07/04/2018 Kylah Riggins 1:39:18 PM RT(R) Signatures Monitor : Kylah Riggins Signature : RT Date : Time : [id number] [place] [address]
--- NOTE | ~2018-07-03 | CN ---
PATIENT NAME:MALU ZAIDI MEDICAL RECORD: [id number] : 63 LOCATION:. D.2123 ADMIT DATE: 07/03/18 ACCOUNT: [id number] CONSULTING PHYSICIAN: YOBANI YIN MD REFERRING PHYSICIAN: AYSHA GRIER MD DATE OF CONSULTATION: 07/03/2018 CARDIOLOGY CONSULTATION DIAGNOSES: 1. Chest pain compatible with angina. 2. Abnormal ECG. 3. Coronary artery disease. 4. Insulin-dependent diabetes. 5. Chronic obstructive pulmonary disease. 6. Smoking history. 7. Cocaine abuse. HISTORY OF PRESENT ILLNESS: Mr. Zaidi began having chest pain after doing cocaine. His cocaine was earlier today. His chest pain has persisted this afternoon. He has ST-T changes on his EKG compatible with ischemia. He gives a history of coronary artery disease, myocardial infarction approximately 10-12 years ago. At that time, he had a cardiac catheterization, but no stenting was undertaken. PHYSICAL EXAMINATION: GENERAL APPEARANCE: Well-nourished, well-developed, appears stated age. Level of distress, comfortable. PSYCHIATRIC: Mental status, alert, normal affect. Orientation, oriented to time, place and person. EYES: Lids and conjunctiva, noninjected. No discharge, no pallor. ENT: Lips, teeth, gums, normal dentition. Oropharynx, no cyanosis, no pallor. NECK: Carotid arteries, bilateral normal upstroke, no bruits, no thrills. JUGULAR VEINS: No jugular venous pressure or distention. CERVICAL LYMPH NODES: Nontender, nonenlarged. THYROID: Not enlarged. Nontender. No nodules. LUNGS: Respiratory effort, unlabored. CHEST: Normal curvature. No thoracic deformity. No chest wall tenderness. Percussion, resonant. Auscultation, clear. No wheezes, no rales, no rhonchi. CARDIOVASCULAR: Precordial exam, nondisplaced. No heaves or pericardial thrills. Rate and rhythm, regular. Heart sounds, normal S1, normal S2. No S3, no gallop, no rub. Systolic murmur, not heard. Diastolic murmur, not heard. EXTREMITIES: No cyanosis, no edema. Peripheral pulses, full and equal in all extremities, except as noted. No bruits appreciated. ABDOMEN: Soft, nondistended. Normal aorta. No bruit. Nontender. No masses. Liver, nontender, no hepatomegaly. Spleen, nontender, no splenomegaly. MUSCULOSKELETAL: No joint tenderness. No joint swelling. No erythema. NEUROLOGICAL: Normal gait, normal strength, normal tone. SKIN: Warm and dry. OVERALL IMPRESSION: Chest pain compatible with angina. We will load him with Plavix and aspirin. Let his primary care physician get his sugar under control and the cocaine to wear off and proceed with coronary angiography in the a.m. Further care depends upon findings of the angiography. CONSULT REPORT [id number] MALU ZAIDI TRANSINT:[id number] Voice Confirmation ID: [id number] DOCUMENT ID: [id number] YOBANI YIN MD at 1059 CC: [id number] DICTATION DATE: 07/03/18 1208 HIRED HELP: 07/03/18 1215 ADM IN [address] [place] [address]
--- NOTE | ~2018-07-03 | MORECARE ---
CASE MANAGEMENT DISCHARGE SUMMARY PATIENT: MALU ZAIDI UNIT: [id number] ADM DATE: 07/03/18 AGE: 52 : 63 SEX: M ROOM/BED: D.2123 AUTHOR: CAROL WATTERS PHYSICIAN: REFERRING PHYSICIAN: AYSHA GRIER MD DATE OF SERVICE: 07/07/18 Discharge Plan Patient Name: MALU ZAIDI Facility: [facility]:[place] : 1965 Planned Disposition: Other Type of Facility Anticipated Discharge Date: 07/05/18 Discharge Date: 07/05/2018 Expected LOS: 2 Initial Reviewer: [email or web address] Initial Review Date: 07/03/2018 Generated: 07/07/18 10:37 am Comments DCP- Discharge Planning Updated by [email or web address]: Ruby Conley on 07/05/18 4:[address] Patient Name: MALU ZAIDI Admission Status: ER Accout number: [id number] Admission Date: 07-03-2018 : 1965 Admission Diagnosis: Attending: AYSHA GRIER Current LOS: 2 Anticipated DC Date: Planned Disposition: Other Type of Facility Primary Insurance: [place] OUT OF STATE Discharge Planning Comments: I SPOKE WITH THE [facility] IN [facility] TO SEE IF THEY HAD SPACE FOR THIS PATIENT. I SPOKE WITH JOAN AT THE CENTER AND HE STATED THEY DID HAVE SPACE AND COULD ALSO PROVIDE DRUG REHAB IF NEEDED. PATIENT DOES NOT HAVE ANY MONEY SO I GOT APPROVAL FROM RACHEAL [place] FOR PAYMENT OF TAXI RIDE FROM HERE TO THE [facility] LOCATED AT [address] [place] [address], PHONE NUMBER [phone]. CALLED [place] [facility] AT [phone] AND SPOKE WITH RACHEAL ABOUT PICKING PATIENT UP FROM HOSPITAL AND TAKING TO [facility]. CM OFFICE WILL BE BILLED FOR TAXI RIDE. PATIENT HAS DISCHARGE PAPERS AND INSULIN TO TAKE WITH HIM, [facility] CALLED AND HE HAS REFILLS ON HIS INSULIN WHEN HE NEEDS MORE. CM SPOKE WITH HIS NURSE NAT AND SHE WILL TRANSPORT PATIENT TO THE FRONT ENTRANCE OF THE HOSPITAL TO MEET THE TAXI. CM WILL FOLLOW AND ASSIST NEEDED WITH ANY OTHER DC NEEDS. Loader Helper: Ruby Conley DCP- Discharge Planning Updated by [email or web address]: Aditi Torres on 07/05/18 2:[address] LATE [id number] CM MET WITH THE PATIENT AT THE BEDSIDE. HE IS UNDOMICILED. HIS GIRLFRIEND , JOSE PEREZ, ASK HIM TO LEAVE HER HOME APPROXIMATELY 3 WEEKS AGO. THEY HAD AN ARGUMENT ABOUT HIS DISCIPLING HER 6 CHILDREN. HE REPORTEDLY DOES NOT HAVE A PHONE. HE RELOCATED FROM [place] TO [place] AFTER CONVERSING ON LINE WITH MS PEREZ ALMOST ONE YEAR AGO. HE HAS FAMILY IN [place]. HAS A DAUGHTER, TRIXIE ZAIDI, IN [place], [place]. STATES HE LOST HIS PHONE 3 WEEKS AGO AND CANNOT RECALL THE PHONE NUMBERS. VIVIENNE FRYE A COUSIN, IS IN [place]. HE WANTS TO GO TO AN INPATIENT DRUG REHAB. HE KNOWS HE CANNOT GO TO THE ONLY [facility] IN [place]. NO FAMILY NO FRIENDS IN TOWN. STATES HE HAS BEEN ON THE STREETS. EXPLAINED WE WILL HAVE TO LOOK IN [place]. DID GIVE HIM INFORMATION ABOUT [facility] IN [facility]. NO ONE TO ASSESS AND ADMIT AVAILABLE ON THE WEEKEND. HE IS WILLING TO GO TO [place] FOR A DRUG REHAB PROGRAM. CM ALSO PROVIDED INFORMATION ABOUT CRACK COCAINE EFFECTS ON THE CARDIOVASCULAR SYSTEM AND THE BODY IN GENERAL. DISCUSSED HANDOUT. PATIENT STATES HE DOES NOT HAVE HIS GLASSESS. PATIENT STATES HE HAS BEEN SOBER FOR 13 YEARS. CM WILL SPEAK WITH KOBI MAIN, TO SEARCH [place] FOR A PROGRAM AND HOUSING. SHE WILL FOLLOW UP WITH THE PATIENT. Last DP export: 07/05/18 4:11 Patient Name: MALU ZAIDI Page [phone] at 0937 All edits/amendments must be made on the electronic document DICTATION DATE: 07/07/18936 EQUIPMENT STERILIZER: TIMUR 07/07/18936 RPT#: [id number] DC DATE:07/05/18 STATUS: DIS IN [facility] [address] [place] [address] END OF REPORT
--- NOTE | ~2018-07-03 | MORECARE ---
CASE MANAGEMENT DISCHARGE SUMMARY PATIENT: MALU ZAIDI UNIT: [id number] ADM DATE: 07/03/18 AGE: 52 : 63 SEX: M ROOM/BED: D.2123 AUTHOR: JANENEDOC PHYSICIAN: REFERRING PHYSICIAN: AYSHA GRIER MD DATE OF SERVICE: 07/05/18 Discharge Plan Patient Name: MALU ZAIDI [facility] [facility] 1965 Planned Disposition: Other Type of Facility Anticipated Discharge Date: Discharge Date: 07/05/2018 Expected LOS: Initial Reviewer: [email or web address] Initial Review Date: 07/03/2018 Generated: 07/05/18 6:11 pm Comments DCP- Discharge Planning Updated by [email or web address]: Ruby Conley on 07/05/18 4:[address] Patient Name: MALU ZAIDI Admission Status: ER Accout number: [id number] Admission Date: 07-03-2018 : 1965 Admission Diagnosis: Attending: AYSHA GRIER Current LOS: 2 Anticipated DC Date: Planned Disposition: Other Type of Facility Primary Insurance: [place] OUT OF STATE Discharge Planning Comments: I SPOKE WITH THE [facility] IN [facility] TO SEE IF THEY HAD SPACE FOR THIS PATIENT. I SPOKE WITH JOAN AT THE CENTER AND HE STATED THEY DID HAVE SPACE AND COULD ALSO PROVIDE DRUG REHAB IF NEEDED. PATIENT DOES NOT HAVE ANY MONEY SO I GOT APPROVAL FROM RACHEAL [place] FOR PAYMENT OF TAXI RIDE FROM HERE TO THE [facility] LOCATED AT [address] [place] [address], PHONE NUMBER [phone]. CALLED [place] [facility] AT [phone] AND SPOKE WITH RACHEAL ABOUT PICKING PATIENT UP FROM HOSPITAL AND TAKING TO [facility]. CM OFFICE WILL BE BILLED FOR TAXI RIDE. PATIENT HAS DISCHARGE PAPERS AND INSULIN TO TAKE WITH HIM, [facility] CALLED AND HE HAS REFILLS ON HIS INSULIN WHEN HE NEEDS MORE. CM SPOKE WITH HIS NURSE NAT AND SHE WILL TRANSPORT PATIENT TO THE FRONT ENTRANCE OF THE HOSPITAL TO MEET THE TAXI. CM WILL FOLLOW AND ASSIST NEEDED WITH ANY OTHER DC NEEDS. [place] Strip Gauger: Ruby Conley DCP- Discharge Planning Updated by [email or web address]: Aditi Torres on 07/05/18 2:[address] LATE [id number] KOBI MET WITH THE PATIENT AT THE BEDSIDE. HE IS UNDOMICILED. HIS GIRLFRIEND , JOSE PEREZ, ASK HIM TO LEAVE HER HOME APPROXIMATELY 3 WEEKS AGO. THEY HAD AN ARGUMENT ABOUT HIS DISCIPLING HER 6 CHILDREN. HE REPORTEDLY DOES NOT HAVE A PHONE. HE RELOCATED FROM [place] TO [place] AFTER CONVERSING ON LINE WITH MS PEREZ ALMOST ONE YEAR AGO. HE HAS FAMILY IN [place] AND [place]. HAS A DAUGHTER, TRIXIE ZAIDI, IN [place], [place]. STATES HE LOST HIS PHONE 3 WEEKS AGO AND CANNOT RECALL THE PHONE NUMBERS. VIVIENNE FRYE A COUSIN, IS IN [place]. HE WANTS TO GO TO AN INPATIENT DRUG REHAB. HE KNOWS HE CANNOT GO TO THE ONLY [facility] IN [place]. NO FAMILY NO FRIENDS IN TOWN. STATES HE HAS BEEN ON THE STREETS. EXPLAINED WE WILL HAVE TO LOOK IN [place]. DID GIVE HIM INFORMATION ABOUT [facility]. NO ONE TO ASSESS AND ADMIT AVAILABLE ON THE WEEKEND. HE IS WILLING TO GO TO [place] FOR A DRUG REHAB PROGRAM. CM ALSO PROVIDED INFORMATION ABOUT CRACK COCAINE EFFECTS ON THE CARDIOVASCULAR SYSTEM AND THE BODY IN GENERAL. DISCUSSED HANDOUT. PATIENT STATES HE DOES NOT HAVE HIS GLASSESS. PATIENT STATES HE HAS BEEN SOBER FOR 13 YEARS. KOBI WILL SPEAK WITH KO[facility] MAIN, TO SEARCH [place] FOR A PROGRAM AND HOUSING. SHE WILL FOLLOW UP WITH THE PATIENT. Last DP export: 07/05/18 3:00 Patient Name: MALU ZAIDI Page [id number] at 1711 All edits/amendments must be made on the electronic document DICTATION DATE: 07/05/181709 AIR BRAKE RIGGER: TIMUR 07/05/181709 RPT#: [id number] DC DATE:07/05/18 STATUS: DIS IN [id number] [place] [address] END OF REPORT
--- NOTE | ~2018-07-03 | MORECARE ---
CASE MANAGEMENT DISCHARGE SUMMARY PATIENT: MALU ZAIDI UNIT: [id number] ADM DATE: 07/03/18 AGE: 52 : 63 SEX: M ROOM/BED: D.2123 AUTHOR: CAROL WATTERS PHYSICIAN: REFERRING PHYSICIAN: AYSHA GRIER MD DATE OF SERVICE: 07/05/18 Discharge Plan Patient Name: MALU [facility]AIDI [facility] [facility] 1965 Planned Disposition: Other Type of Facility Anticipated Discharge Date: Discharge Date: Expected LOS: Initial Reviewer: [email or web address] Initial Review Date: 07/03/2018 Generated: 07/05/18 4:23 pm Patient Name: MALU ZAIDI Page [phone] at 1523 All edits/amendments must be made on the electronic document DICTATION DATE: 07/05/18 152 RN TRAINING: TIMUR 07/05/18 152 RPT#: [id number] DC DATE: STATUS: ADM IN [facility] [address] [place] [address] END OF REPORT
[2018-07-03 11:22] LABS: APTT 27.8 SECONDS (22.8-39.4); INR 1.26 (0.85-1.17); PROTIME 15.4 SECONDS (11.6-15.0)
[2018-07-03 11:38] LABS: ALKALINE PHOSPHATASE 74 U/L (46-116); ALT (SGPT) 47 U/L (10-68); CALC OSMOLALITY 289 mosm/kg (275-300); CALCIUM 10.6 mg/dL (8.5-10.1); CARBON DIOXIDE 24.8 mmol/L (21.0-32.0); CHLORIDE - SERUM 98 mmol/L (98-107); CKMB 4.7 U/L (0.0-3.6); CREATINE KINASE 434 UL (21-232); MAGNESIUM - SERUM 1.8 mg/dL (1.8-2.4); POTASSIUM - SERUM 4.6 mmol/L (3.5-5.1); PROTEIN - SERUM 8.7 g/dL (6.4-8.2); SODIUM 134 mmol/L (136-145); TROPONIN-I 0.024 ng/mL (0.000-0.060); UREA NITROGEN 25 mg/dL (7-18); eGFR NON AFRICAN AMERICAN 37 mL/min (90-120)
[2018-07-03 11:39] LABS: BASOPHILS 0.7 % (0-2); EOSINOPHILS 4.1 % (0-7); HEMATOCRIT 44.7 % (42.0-54.0); HEMOGLOBIN 16.1 g/dL (13.5-17.5); IMMATURE GRANULOCYTES 0.4 % (0-5); LYMPHOCYTES 25.8 % (15-50); MCH 30.9 pg (26.0-34.0); MCV 85.8 fL (80.0-100.0); MEAN PLATELET VOLUME 14.1 fL (7.4-10.4); MONOCYTES 4.9 % (2-11); NEUTROPHILS 64.1 % (40-80); PLATELET COUNT 190 10x3/uL (130-400); RBC 5.21 10x6/uL (4.20-6.10); RDW 12.7 % (11.5-14.5); WBC 7.5 10x3/uL (4.8-10.8)
[2018-07-03 11:42] LABS: GLUCOSE 426 mg/dL (74-106)
[2018-07-03 15:57] VITALS: BP 151/83
[2018-07-03 19:00] VITALS: BP 136/92
[2018-07-04 02:11] VITALS: BP 145/88
[2018-07-04 04:00] VITALS: BP 147/99
[2018-07-04 09:00] VITALS: BP 147/86
[2018-07-04 11:48] LABS: APPEARANCE CLEAR (CLEAR); BILIRUBIN NEGATIVE (NEGATIVE); COLOR DK YELLOW (YELLOW); GLUCOSE 250 mg/dL (NEGATIVE); KETONE SMALL mg/dL (NEGATIVE); NITRITE NEGATIVE (NEGATIVE); PROTEIN 1+ mg/dL (NEGATIVE); UDS - AMPHET NEGATIVE QUAL (NEGATIVE); UDS - BARB NEGATIVE QUAL (NEGATIVE); UDS - BENZO NEGATIVE QUAL (NEGATIVE); UDS - COCAINE POSITIVE QUAL (NEGATIVE); UDS - OPIATE NEGATIVE QUAL (NEGATIVE); UDS - PCP NEGATIVE QUAL (NEGATIVE); UDS - THC NEGATIVE QUAL (NEGATIVE)
[2018-07-04 11:49] LABS: BACTERIA NONE SEEN /hpf (NONE SEEN); EPITHELIAL CELLS NSEEN /hpf (0-5); RED CELLS - URINE NONE SEEN /hpf (0-5); WHITE CELLS - URINE NSEEN /hpf (0-5)
[2018-07-04 13:29] VITALS: BP 148/90
[2018-07-04 13:44] VITALS: Ht 193 cm; Wt 102.3 kg
[2018-07-04 16:06] VITALS: BP 151/83
[2018-07-04 20:00] VITALS: BP 150/79
[2018-07-05 00:10] VITALS: BP 137/99
[2018-07-05 04:00] VITALS: BP 147/88
[2018-07-05 06:16] LABS: BASOPHILS 1.4 % (0-2); EOSINOPHILS 7.8 % (0-7); HEMATOCRIT 41.9 % (42.0-54.0); HEMOGLOBIN 14.7 g/dL (13.5-17.5); IMMATURE GRANULOCYTES 0.4 % (0-5); LYMPHOCYTES 40.5 % (15-50); MCH 30.7 pg (26.0-34.0); MCHC 35.1 g/dL (31.0-37.0); MCV 87.5 fL (80.0-100.0); MEAN PLATELET VOLUME 13.3 fL (7.4-10.4); NEUTROPHILS 42.9 % (40-80); PLATELET COUNT 196 10x3/uL (130-400); RBC 4.79 10x6/uL (4.20-6.10); RDW 12.9 % (11.5-14.5)
[2018-07-05 06:25] LABS: WBC 5.1 10x3/uL (4.8-10.8)
[2018-07-05 06:30] LABS: CALCIUM 9.1 mg/dL (8.5-10.1); CARBON DIOXIDE 24.8 mmol/L (21.0-32.0); POTASSIUM - SERUM 4.8 mmol/L (3.5-5.1)
[2018-07-05 06:33] LABS: CREATININE - SERUM 1.4 mg/dL (0.6-1.3)
[2018-07-05 08:53] VITALS: BP 141/97
[2018-07-05] MEDS ORDERED: PROTONIX40 MG PO (09:58)
[2018-07-05] MEDS ORDERED: CARAFATE1 G PO (09:59)
== END 2018-07-05 17:03 | disposition home or self-care (01) ==
LOC: D.ER 10:20 → D.EDHOLD 12:22 → D.M2 12:22 → OBSVTIME 12:22 → D.M2 13:35
PROVIDERS: Family Medicine; Internal Medicine Nephrology
DX: I25.119 Atherosclerotic heart disease of native coronary artery with unspecified angina pectoris (principal); E11.65 Type 2 diabetes mellitus with hyperglycemia; Z79.4 Long term (current) use of insulin; R94.31 Abnormal electrocardiogram [ECG] [EKG]; J44.9 Chronic obstructive pulmonary disease, unspecified; F14.10 Cocaine abuse, uncomplicated; K21.0 Gastro-esophageal reflux disease with esophagitis; N17.9 Acute kidney failure, unspecified; E83.52 Hypercalcemia; F17.213 Nicotine dependence, cigarettes, with withdrawal